=== PATIENT | female | born 1990 | race Caucasian/White ===

== ENCOUNTER 2017-08-14 20:11 | Emergency (ER) | payer MEDICAID, OTHER ==
--- NOTE | 2017-08-14 20:38 | RADIOLOGY REPORT (SQ) ---
EXAM DESCRIPTION: KNEE RIGHT 4 VIEWS COMPLETED DATE/TIME: 08/14/2017 8:29 pm REASON FOR STUDY: Pain s/p injury COMPARISON: None. NUMBER OF VIEWS: Four views. TECHNIQUE: AP, lateral, and both oblique radiographic images acquired of the right knee. LIMITATIONS: None. FINDINGS: MINERALIZATION: Normal. BONES: No acute fracture or dislocation. No worrisome bone lesions. JOINT: No effusion. SOFT TISSUES: No soft tissue swelling. No radio-opaque foreign body. OTHER: No other significant finding. IMPRESSION: NEGATIVE STUDY OF THE RIGHT KNEE. NO RADIOGRAPHIC EVIDENCE OF ACUTE INJURY. TECHNICAL DOCUMENTATION: JOB ID: [id number] [employer]- All Rights Reserved Reading location - IP/workstation name: [email or web address]
[2017-08-14] MEDS ORDERED: ACETAMINOPHEN 325 MG TABLET PO ONE (22:56)
[2017-08-14] MEDS ORDERED: HYDROCODONE/ACETAMINOPHEN 5-325 MG (6 TAB/ER DISP) PO PRN (22:59)
--- NOTE | 2017-08-14 23:02 | ER Document Report ---
ED Extremity Problem, Lower - General Chief Complaint: R knee pain/injury Stated Complaint: FALL/RIGHT KNEE PAIN Time Seen by Provider: 08/14/17 22:18 Mode of Arrival: Ambulatory Information source: Patient Notes: 27-year-old female presented to ED for right knee contusion when she fell on the concrete about 3 PM today. She states she took some Tylenol about 6:50 PM. TRAVEL OUTSIDE OF THE [place] IN LAST 30 DAYS: No - HPI Patient complains to provider of: Injury, Pain, Swelling - Minimal Location: Knee - Right knee Occurred: Other - 3 PM Where: Outdoors, Public place Onset/Duration: Sudden Quality of pain: Pressure, Sharp Severity: Moderate Pain Level: 3 Context: Fell - Landing on her right knee Recent injury: Yes Associated symptoms: Painful ambulation Exacerbated by: Movement, Walking Relieved by: Elevation, Ice, Rest - Related Data Allergies/Adverse Reactions: cephalexin [From Keflex] Allergy (Verified 08/14/17 20:17) Penicillins Allergy (Verified 08/14/17 20:17) Past Medical History - General Information source: Patient - Social History Smoking Status: Current Every Day Smoker Cigarette use (# per day): Yes - Pack per day Chew tobacco use (# tins/day): No Smoking Education Provided: Yes - 4 minutes Frequency of alcohol use: None Drug Abuse: None 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 denies: CAD, COPD, CVA, DM, Thyroid Disfunction Patient has suicidal ideation: No Patient has homicidal ideation: No - Past Medical History Cardiac Medical History: Reports: None Pulmonary Medical History: Reports: None EENT Medical History: Reports: None Neurological Medical History: Reports: None Endocrine Medical History: Reports: None Renal/ Medical History: Reports: None Malignancy Medical History: Reports: None GI Medical History: Reports: None Musculoskeltal Medical History: Reports Hx Musculoskeletal Trauma Skin Medical History: Reports None Psychiatric Medical History: Reports: Hx Anxiety, Hx Depression Traumatic Medical History: Reports: Hx Fractures - Fractured nose Infectious Medical History: Reports: None Past Surgical History: Reports: Hx Cholecystectomy, Hx Myringotomy, Hx Oral Surgery - [place] teeth, Hx Tonsillectomy Review of Systems - Review of Systems Notes: Constitutional: [PRESENT: as per HPI. ABSENT: chills, fever(s), headache(s), weight gain, weight loss] Eyes: [ABSENT: visual disturbances] Ears: [ABSENT: hearing changes] Cardiovascular: [ABSENT: chest pain, dyspnea on exertion, edema, orthropnea, palpitations] Respiratory: [ABSENT: cough, hemoptysis] Gastrointestinal: [ABSENT: abdominal pain, constipation, diarrhea, hematemesis, hematochezia, nausea, vomiting] Genitourinary: [ABSENT: dysuria, hematuria] Musculoskeletal: Pain with minimal swelling to the right knee Integumentary: Minimal swelling no ecchymosis to right knee Neurological: [ABSENT: abnormal gait, abnormal speech, confusion, dizziness, focal weakness, syncope] Psychiatric: [ABSENT: anxiety, depression, homicidal ideation, suicidal ideation ] Endocrine: [ABSENT: cold intolerance, heat intolerance, menstrual abnormalities , polydipsia, polyuria] Hematologic/Lymphatic: [ABSENT: easy bleeding, easy bruising, lymphadenopathy] Physical Exam - Vital signs Vitals: Temp Pulse Resp BP Pulse Ox 97.6 F 94 18 136/83 H 99 08/14/17 20:20 08/14/17 20:20 08/14/17 20:20 08/14/17 20:20 08/14/17 20:20 - Notes Notes: PHYSICAL EXAMINATION: GENERAL: Well-appearing, well-nourished and in no acute distress. HEAD: Atraumatic, normocephalic. EYES: Pupils equal round and reactive to light, extraocular movements intact, conjunctiva are normal. ENT: Nares patent, oropharynx clear without exudates. Moist mucous membranes. NECK: Normal range of motion, supple without lymphadenopathy LUNGS: Breath sounds clear to auscultation bilaterally and equal. No wheezes rales or rhonchi. HEART: Regular rate and rhythm without murmurs ABDOMEN: Soft, nontender, nondistended abdomen. No guarding, no rebound. No masses appreciated. Female : deferred Musculoskeletal: Normal range of motion, no pitting or edema. No cyanosis. Minimal swelling to right knee no ecchymosis patient has full range of motion to the knee. Patient walks with the even steady gait. Patient states she has been walking on it ever since she injured it. Patient refused knee immobilizer Yuan wrap or crutches. NEUROLOGICAL: Cranial nerves grossly intact. Normal speech, normal gait. Normal sensory, motor exams PSYCH: Normal mood, normal affect. SKIN: Warm, Dry, normal turgor, no rashes or lesions noted. Course - Re-evaluation Re-evalutation: 08/15/17 02:03 Discussed x-rays with patient and written report given to patient to follow-up with primary doctor. Patient refused any a strep knee immobilizer or crutches. Patient was treated with Tylenol in the emergency room. Patient states she has a knee brace at home. She states she has been walking fine on this leg without having a knee immobilizer. Patient was given instructions on range of motion for knee and to follow-up with orthopedics if he continued to hurt. Patient verbalized understanding of instructions. - Vital Signs Vital signs: Temp Pulse Resp BP Pulse Ox 97.9 F 89 16 132/88 H 100 08/14/17 23:09 08/14/17 23:09 08/14/17 23:09 08/14/17 23:09 08/14/17 23:09 - Diagnostic Test Radiology reviewed: Image reviewed, Reports reviewed Discharge - Discharge Clinical Impression: Contusion of right knee Qualifiers: Encounter type: initial encounter Qualified Code(s): S80.01XA - Contusion of right knee, initial encounter Condition: Stable Disposition: HOME, SELF-CARE Additional Instructions: Contusion Your injury has resulted in a contusion -- a crushing of the deep tissues. No injury to important structures was detected during the physician's exam. Contusions vary in the amount of pain they cause, and in the length of time required for healing. Typically, the area will become bruised, and will remain painful to touch for two or three weeks. However, most patients are back to working and playing within a few days. After the initial period of rest and cold-packs, your symptoms (together with the doctor's recommendations) will determine how rapidly you can get back to full activity. Usually this means "do what feels okay, but don't do things that hurt." If re-examination was recommended, it's important to follow up as instructed. Call the doctor or return any time if pain increases, if swelling becomes severe, if you develop numbness or weakness in an injured extremity, or if any other alarming symptoms occur. Knee Exercise Program It's important to strengthen the muscles around the knee. This protects the injured area and stabilizes a knee that's been loosened by ligament injury. EARLY - Even when motion of the knee is painful (even when wearing a splint ), you can begin isometric "quads" exercises. While sitting, hold the knee out, and contract the muscles to stiffen it. It shouldn't be straightened all the way -- stiffen it in a slightly-bent position. Lift the leg and draw a "T" with your foot, up to 100 times. When it becomes easy, add a weight on your foot. LATE - When the doctor advises you, you can begin moving the knee against resistance. The front muscles (quadriceps) are most important. While sitting at a [employer], straighten the knee forcefully while pushing a weight up with your ankle. Start with five to 10 pounds. Do 10 to 20 repetitions, increasing the weight as tolerated. Don't use more weight than is comfortable! Over a few weeks, work up to 35 to 50 pounds. Athletes should try to reach 70 to 90 pounds. ICE & ELEVATION: Apply ice packs frequently against the painful area. Many different schedules are recommended, such as "20 minutes on, 20 minutes off" or "one hour ice, two hours rest." If you need to work, you may need to go longer between ice treatments. You should plan to have the area ice packed AT LEAST one- fourth of the time. The ice should be applied over the wrap, tape, or splint, or over a layer of cloth -- not directly against the skin. Some ice bags have a built-in cloth and can be put directly on the skin. Your injured part should be elevated as much as possible over the next 48 hours. Try to keep the injury above the level of the heart. Avoid use of the injured area. Elevation and rest will decrease the swelling. USE OF [id number]-ONR-CATCZDP IBUPROFEN: Ibuprofen (Advil, Nuprin, Medipren, Motrin IB) is a medication for fever and pain control. In addition, it has anti- inflammatory effects which may be beneficial, especially in the treatment of injuries. It's best to take ibuprofen with food. Persons with ulcer disease or allergy to aspirin should notify their physician of this before taking ibuprofen. Ibuprofen can be given every four to six hours, for a total of four doses daily. Age Pain or fever dose Antiinflammatory dose 6-8 yr 200 mg (1 tab) 200 mg (1 tab) 9-11 yr 200 mg (1 tab) 200-400 mg (1-2 tab) 11-14 yr 200-400 mg (1-2 tab) 400 mg (2 tab) 15-adult 400 mg (2 tab) 600 mg (3 tab) ORAL NARCOTIC MEDICATION: You have been given a [place] dispense pack for pain control. This medication is a narcotic. It's best taken with food, as nausea can result if taken on an empty stomach. Don't operate machinery or drive within six hours of taking this medication. Do not combine this medicine with alcohol, or with any medication which can cause sedation (such as cold tablets or sleeping pills) unless you get permission from the physician. Narcotics tend to cause constipation. If possible, drink plenty of fluids and eat a diet high in fiber and fruits. Please be aware that prescription narcotics also have the potential for abuse. People become addicted to these medications because of the general sense of wellbeing that they induce. This feeling along with a significant reduction in tension, anxiety, and aggression provides a stimulating seductive quality to these drugs. Once your pain is under control, we encourage you to discard your unused narcotics. FOLLOW-UP CARE: If you have been referred to a physician for follow-up care, call the physician s office for an appointment as you were instructed or within the next two days. If you experience worsening or a significant change in your symptoms, notify the physician immediately or return to the Emergency Department at any time for re-evaluation. Forms: Smoking Cessation Education Referrals: RUCHI GOLDMAN MD [Primary Care Provider] - Follow up as needed MARCY MCGRATH MD [ACTIVE STAFF] - Follow up as needed
[2017-08-14 23:32] VITALS: BP 132/88
== END 2017-08-14 23:16 | disposition home or self-care (01) ==
LOC: ER 20:11
DX: S80.01XA Contusion of right knee, initial encounter (principal); W19.XXXA Unspecified fall, initial encounter; Y93.89 Activity, other specified; Y92.009 Unspecified place in unspecified non-institutional (private) residence as the place of occurrence of the external cause; F17.210 Nicotine dependence, cigarettes, uncomplicated; Z71.6 Tobacco abuse counseling; Z88.1 Allergy status to other antibiotic agents; Z88.0 Allergy status to penicillin
CPT/HCPCS: 99283; 99406

== ENCOUNTER 2018-07-17 09:20 | Emergency (ER) | payer MEDICAID ==
[2018-07-17 09:38] VITALS: BP 127/80
--- NOTE | 2018-07-17 09:45 | ER Document Report ---
HPI - HPI Time Seen by Provider: 07/17/18 09:38 Pain Level: 1 Notes: Patient is a 28-year-old female no significant past medical history presents the emergency department complaining of maxillary sinus pain, sinus headache, nasal congestion/discharge, postnasal drip, occasional dry nonproductive cough, intermittent fever over the last 3 weeks. Patient states that she has been using [id number]-[id number]-[id number] meds with minimal relief. Patient states that one point it was getting better, but then started to worsen over the last week. She is eating and drinking without difficulty. She is urinating normally and having normal bowel movements. Denies any neck pain, sore throat, chest pain, palpitations, syncope, shortness of breath, wheeze, dyspnea, abdominal pain, nausea/vomiting/diarrhea, urinary retention, dysuria, hematuria, or rash. - ROS Systems Reviewed and Negative: Yes All other systems reviewed and negative - REPRODUCTIVE Reproductive: DENIES: : Past Medical History - Social History Smoking Status: Never Smoker Family History: Arthritis, Hyperlipidemia, Hypertension, Malignancy. denies: CAD, COPD, CVA, DM, Thyroid Disfunction Renal/ Medical History: Denies: Hx Peritoneal Dialysis Musculoskeletal Medical History: Reports Hx Musculoskeletal Trauma Psychiatric Medical History: Reports: Hx Anxiety, Hx Depression Traumatic Medical History: Reports: Hx Fractures - Fractured nose Past Surgical History: Reports: Hx Cholecystectomy, Hx Myringotomy, Hx Oral Surgery - [place] teeth, Hx Tonsillectomy Vertical Provider Document - CONSTITUTIONAL Agree With Documented VS: Yes Notes: PHYSICAL EXAMINATION: GENERAL: Well-appearing, well-nourished and in no acute distress. A&Ox4. Answers questions appropriately. Moves comfortably w/o notable distress HEAD: Atraumatic, normocephalic. EYES: Pupils equal round and reactive to light, extraocular movements intact, sclera anicteric, conjunctiva are normal. ENT: EAC clear b/l. TM's intact b/l without erythema, fluid, or perforation. Nares patent and with mild inflammation and yellow discharge. + illumination test left maxillary. + tenderness left max. sinus. oropharynx no erythema without exudates. No tonsilar hypertrophy without erythema or exudate. No palatine shift. Uvula midline. No tongue protrusion. No drooling, hoarseness, or airway compromise. Moist mucous membranes. NECK: Normal range of motion, supple without lymphadenopathy. No rigidity/meningismus. LUNGS: Breath sounds clear to auscultation bilaterally and equal. No wheezes rales or rhonchi. No retractions HEART: Regular rate and rhythm without murmurs, rubs, gallops. NEUROLOGICAL: Normal speech, normal gait. Normal sensory, motor exams PSYCH: Normal mood, normal affect. SKIN: Warm, Dry, normal turgor, no rashes or lesions noted. - INFECTION CONTROL TRAVEL OUTSIDE OF THE [place] IN LAST 30 DAYS: No Course - Re-evaluation Re-evalutation: 07/17/18 09:43 Patient is an afebrile, well-hydrated, 28-year-old female who presents to the ED with acute sinusitis with tenderness, discharge, and + illumination test. Vitals are acceptable. PE is otherwise unremarkable. No labs or imaging warranted at this time based on H&P. Patient has no significant cardiopulmonary or immunocompromised medical conditions. Patient's lungs are clear to auscultation bilaterally without tachycardia, hypoxia, or tachypnea. Patient is tolerating p.o. without any difficulties. Low suspicion for any meningitis, sepsis, peritonsillar/pharyngeal abscess, respiratory compromise, severe dehydration, or other emergent systemic condition at this time. Patient is aware this condition can change from initial presentation and she needs to monitor symptoms closely. I will send her home with zithromax which she may begin with worsening/ongoing symptoms x3 days. Conservative measures otherwise for symptoms. Recheck with your PCM in 3-5 days. Return to the ED with any worsening/concerning symptoms otherwise as reviewed in discharge. Patient is in agreement. - Vital Signs Vital signs: Temp Pulse Resp BP Pulse Ox 97.9 F 100 18 127/80 H 97 07/17/18 09:33 07/17/18 09:33 07/17/18 09:33 07/17/18 09:33 07/17/18 09:33 Discharge - Discharge Clinical Impression: Acute sinusitis Qualifiers: Sinusitis location: maxillary Recurrence: non-recurrent Qualified Code(s): J01.00 - Acute maxillary sinusitis, unspecified Condition: Stable Disposition: HOME, SELF-CARE Additional Instructions: Maintain adequate fluid intake Take meds as directed tylenol/ibuprofen as needed over the counter cold medication as needed for symptoms Humidified air may help Wash your hands regularly Wear a mask when coughing F/u: with your PCM in 3-5 days for a recheck Return to the ED with any fever, worsening pain, chest pain, palpitations, syncope, worsening CLEMENTS, neck pain/stiffness, shortness of breath, wheezing, drooling, trouble swallowing/breathing, abdominal pain, n/v/d, rash, or worsening/concerning symptoms otherwise. Prescriptions: Azithromycin [Zithromax 250 mg Tablet] 250 mg PO ASDIR PRN #6 tablet PRN Reason: Forms: Elevated Blood Pressure Referrals: RUCHI GOLDMAN MD [Primary Care Provider] - Follow up as needed
== END 2018-07-17 09:52 | disposition home or self-care (01) ==
LOC: ER 09:20
DX: J01.00 Acute maxillary sinusitis, unspecified (principal); R51 Headache; R09.81 Nasal congestion; Z90.49 Acquired absence of other specified parts of digestive tract
CPT/HCPCS: 99283

== ENCOUNTER → 2018-12-11 | Outpatient (CLI) | payer MEDICAID ==
--- NOTE | 2018-12-11 13:52 | RADIOLOGY REPORT (SQ) ---
EXAM DESCRIPTION: FOOT RIGHT COMPLETE COMPLETED DATE/TIME: 12/11/2018 12:17 pm REASON FOR STUDY: INJURY OF RIGHT ANKLE AND FOOT, INITIAL ENCOUNTER S99.911A UNSPECIFIED INJURY OF RIGHT ANKLE, INITIAL ENCOUNTE COMPARISON: None. NUMBER OF VIEWS: Three views. TECHNIQUE: AP, lateral and oblique radiographic images acquired of the right foot. LIMITATIONS: None. FINDINGS: MINERALIZATION: Normal. BONES: No acute fracture or dislocation. No worrisome bone lesions. JOINTS: No effusions. SOFT TISSUES: No soft tissue swelling. No foreign body. OTHER: No other significant finding. IMPRESSION: NEGATIVE STUDY OF THE RIGHT FOOT. NO RADIOGRAPHIC EVIDENCE OF ACUTE INJURY. TECHNICAL DOCUMENTATION: JOB ID: [id number] [employer]- All Rights Reserved Reading location - IP/workstation name: [email or web address]
== END ==
LOC: OD 11:58
PROVIDERS: ATTEND Nurse Practitioner Acute Care
DX: S99.911A Unspecified injury of right ankle, initial encounter (principal); X58.XXXA Exposure to other specified factors, initial encounter

== ENCOUNTER → 2020-04-09 | Outpatient (CLI) | payer MEDICAID ==
[2020-04-09 14:17] VITALS: BP 126/77
--- NOTE | 2020-04-09 14:17 | ER RDC ASSESSMENT REPORT ---
Intake - In the Last 14 days Have you traveled outside [place]?: No Have you been in close contact with someone CONFIRMED: No Worked in Healthcare?: No - Symptoms Subjective Fever([place] feverish): No Chills: No Muscule Aches: No Runny Nose: No Sore Throat: Yes Cough (New or worsening chronic cough): Yes Shortness of breath: No Nausea or Vomiting: No Headache: Yes Abdominal Pain: No Diarrhea(3 or more loose stools in last 24 hours): No - Do you have any of the following Chronic lung disease: Asthma or emphysema or COPD: No Cystic Fibrosis: No Diabetes: No High Blood Pressure: No Cardiovascular Disease: No Chronic Kidney Disease: No Chronic Liver Disease: No Chronic blood disorder like Sickle Cell Disease: No Weak immune system due to disease or medication: No Neurologic condition that limits movement: No Developmental delay - Moderate to Severe: No Recent (within past 2 weeks) or current : No Morbid Obesity (>100 pounds over ideal weight): No - Objective Temperature: 97.7 F Pulse Rate: 95 Respiratory Rate: 18 Blood Pressure: 126/77 O2 Sat by Pulse Oximetry: 98 Objective: Patient is a well-appearing 30-year-old female, who presents today for COVID-19 screening. Disposition: Home; Selfcare General - General Stated Complaint: Upper respiratory symptoms Mode of Arrival: Ambulatory Information source: Patient Notes: The patient was evaluated during the global COVID-19 pandemic. That diagnosis was suspected/considered upon initial presentation. Their evaluation, treatment, and testing was consistent with current guidelines for patients who present with complaints or symptoms that may be related to COVID-19. - HPI Patient complains to provider of: Upper respiratory symptoms Onset: Other - He days Onset/Duration: Constant, Persistent, Worse Quality of pain: No pain Severity: None Pain Level: Denies Associated symptoms: Nonproductive cough, Headache, Sore throat Exacerbated by: Denies Relieved by: Denies Similar symptoms previously: No Recently seen / treated by doctor: No - Related Data Allergies/Adverse Reactions: cephalexin [From Keflex] Allergy (Verified 08/14/17 20:17) Penicillins Allergy (Verified 08/14/17 20:17) Past Medical History - General Information source: Patient - Social History Smoking Status: Current Every Day Smoker Cigarette use (# per day): Yes - 1 pack/day Chew tobacco use (# tins/day): No Smoking Education Provided: Yes Frequency of alcohol use: Occasional Drug Abuse: None 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 denies: CAD, COPD, CVA, DM, Thyroid Disfunction Patient has suicidal ideation: No Patient has homicidal ideation: No Renal/ Medical History: Denies: Hx Peritoneal Dialysis Musculoskeletal Medical History: Reports Hx Musculoskeletal Trauma Psychiatric Medical History: Reports: Hx Anxiety, Hx Depression Traumatic Medical History: Reports: Hx Fractures - Fractured nose Past Surgical History: Reports: Hx Cholecystectomy, Hx Myringotomy, Hx Oral Surgery - [place] teeth, Hx Tonsillectomy Physical Exam - General General appearance: Appears well In distress: None Notes: PHYSICAL EXAMINATION: GENERAL: Well-appearing and in no acute distress. HEAD: Atraumatic, normocephalic. EYES: Sclera anicteric, conjunctiva are normal. ENT: Nares patent. Moist mucous membranes. NECK: Normal range of motion, supple without lymphadenopathy. LUNGS: CTAB and equal. No wheezes rales or rhonchi. HEART: Regular rate and rhythm without murmurs. ABDOMEN: Soft, nontender, normal bowel sounds, no guarding. EXTREMITIES: Normal range of motion, no pitting edema. No cyanosis. BACK: No midline or CVA tenderness. NEUROLOGICAL: Cranial nerves grossly intact. Normal speech. Normal gait. PSYCH: Normal mood and affect. Calm, cooperative, and answers questions appropriately. SKIN: Warm, Dry, normal color and turgor, no obvious lesions or rash noted. Diagnostic Results Laboratory Results: Patient notified of NEGATIVE results on Rapid Flu (A & B) and Rapid Strep. Advised Throat Culture and COVID testing are PENDING, and they will be notified of any POSITIVE culture results at a later date/time. Patient has been made aware that is currently taking 3 to 5 days for COVID test results, and that The [facility] Department will call to notify them of a POSITIVE COVID-19 test results and a member of the [facility] team will call to notify them of a NEGATIVE COVID-19 result. Patient aware they will be notified by phone, whether they have a NEGATIVE or POSITIVE COVID-19 result. Patient Education/Counseling Counseling/Education: Patient presents with upper respiratory symptoms worrisome for possible COVID- 19. Patient does not have symptoms worrisome as an emergency such as difficulty breathing, shortness of breath, chest pain, pressure, confusion or cyanosis. Patient appears suitable for discharge. Patient's vital signs are stable and patient is nontoxic in appearance. Good return precautions have been discussed with patient, patient verbalized understanding and is agreeable with discharge plan of care at this time. Patient provided COVID-19 discharge instructions to include: As a person under investigation for COVID-19, the [facility] of Health and Human Services, division of public health advises you to adhere to the following guidance until your test results are reported to you. If your test result is positive, you will receive additional information from your provider and your local health department at that time. Remain at home until you are cleared by the health provider or public health authorities. Keep a log of visitors to your home, notify any visitors to your home of your isolation status. If you plan to move to a new address or leave the county, notify the local health department in your County. Call your doctor or seek care if you have an urgent medical need. Before seeking medical care, call ahead to get instructions from the provider before arriving at the medical office clinic or hospital. Notify them that you are being tested for the virus that causes COVID-19 so that arrangements can be made, as necessary, to prevent transmission to others in the healthcare setting. Next, notify the local health department in your county. If a medical emergency arises and you need to call 911, inform dispatch and the first responders that you are being tested for the virus that causes COVID-19. Next, notify the local health department in your county. Patient provided education on smoking cessation and the harmful effects of smoking, especially in the presence of Co-morbid conditions such as Hypertension, Diabetes, and/or other chronic illnesses. Patient verbalized understanding of smoking cessation education, and the increased health benefits of quitting. Guidance for worsening S/SX: For worsening symptoms, patient has been advised to contact their Primary Care Provider, or go to the nearest Emergency Department. [facility] Discharge - Discharge Clinical Impression: COVID-19 Screening URI (upper respiratory infection) Qualifiers: URI type: unspecified URI Qualified Code(s): J06.9 - Acute upper respiratory infection, unspecified Condition: Stable Disposition: Home; Selfcare
[2020-04-09 14:20] LABS: A TYPE INFLUENZA AG NEGATIVE (NEGATIVE); B INFLUENZA AG NEGATIVE (NEGATIVE)
== END ==
LOC: RDC 13:13
PROVIDERS: ATTEND Nurse Practitioner Family
DX: R05 Cough (principal); J02.9 Acute pharyngitis, unspecified; J06.9 Acute upper respiratory infection, unspecified; Z20.828 Contact with and (suspected) exposure to other viral communicable diseases; F41.8 Other specified anxiety disorders; F17.210 Nicotine dependence, cigarettes, uncomplicated; R51.9 Headache, unspecified
CPT/HCPCS: 87070; 87880; 87635; 87804; C9803